=== PATIENT | female | born 1975 | race Caucasian/White ===

== ENCOUNTER 2020-11-12 13:05 | Emergency (ER) | payer SELFPAY ==
[2020-11-12 13:56] LABS: EOS # 0.03 (0.04-0.40); EOS % 0.3 % (1.0-5.0); HEMATOCRIT 39.4 % (37.0-47.0); HEMOGLOBIN 12.7 g/dL (12.5-16.0); LYMPH# 0.96 (1.50-4.00); MEAN CELL VOLUME 82 fl (78-100); MEAN CORPUSCULAR HEMOGLOBIN 26 pg (27-31); MEAN CORPUSCULAR HGB CONC 32 g/dL (33-37); MEAN PLATELET VOLUME 9.9 fl (7.4-10.4); MONO # 0.07 (0.20-0.80); NEU # 9.56 (1.40-6.50); PLATELET COUNT 270 K/mm3 (130-400); RED BLOOD COUNT 4.82 M/mm3 (4.10-5.30); WHITE BLOOD COUNT 10.6 K/mm3 (4.8-10.8)
[2020-11-12 14:25] LABS: POTASSIUM 3.6 mmol/L (3.5-5.1)
[2020-11-12 14:26] LABS: CALCIUM 8.7 mg/dL (8.3-10.5)
[2020-11-12 14:27] LABS: TOTAL PROTEIN 7.1 g/dL (6.4-8.3)
[2020-11-12 14:29] LABS: TOTAL BILIRUBIN 0.3 mg/dL (0.2-1.2)
[2020-11-12 15:15] LABS: URINE APPEARANCE HAZY; URINE BILIRUBIN NEGATIVE (NEGATIVE); URINE BLOOD 250 ery/uL (NEGATIVE); URINE COLOR YELLOW; URINE GLUCOSE NEGATIVE (NEGATIVE); URINE KETONE NEGATIVE (NEGATIVE); URINE LEUKOCYTE ESTERASE 1+ (NEGATIVE); URINE NITRATE NEGATIVE (NEGATIVE); URINE PROTEIN(semi-quant) TRACE mg/dL (NEGATIVE); URINE UROBILINOGEN NORMAL (NORMAL)
[2020-11-12 15:16] LABS: URINE MUCUS PRESENT (NOT PRESENT)
[2020-11-12] MEDS ORDERED: NORCO 325 MG-51 TA1 PO (15:35)
[2020-11-12] MEDS ORDERED: CEPHALEXIN500 M1 PO (15:35)
[2020-11-12 15:45] VITALS: BP 159/90
== END 2020-11-12 15:55 | disposition home or self-care (01) ==
LOC: ED 13:05
PROVIDERS: Physician Assistant
DX: N13.6 Pyonephrosis (principal)
CPT/HCPCS: J1885; J2405; J3010; J7030